=== PATIENT | female | born 1985 | race Caucasian/White ===

== ENCOUNTER → 2017-01-28 | Outpatient (CLI) | payer BC ==
[2017-01-28 10:59] LABS: Basophils % (A) 0 %; CH 30.3; CHCM 33.1; Eosinophils # (A) 0.5 k/uL (0-0.7); Eosinophils % (A) 8 %; HCT 40.4 % (34.0-46.0); HDW 2.54; HGB 13.6 gm/dL (11.4-16.0); Luc # (Auto) 0.22; Luc % (Auto) 4; Lymphocytes # (A) 1.5 k/uL (1.0-4.8); Lymphocytes % (A) 26 %; MCH 30.9 pg (25.0-35.0); MCHC 33.7 g/dL (31.0-37.0); MCV 91.7 fL (80.0-100.0); Mean Platelet Volume 10.2; Monocytes # (A) 0.3 k/uL (0-1.0); Monocytes % (A) 5 %; Neutrophils # (A) 3.3 k/uL (1.3-7.7); Neutrophils % (A) 57 %; RBC 4.41 m/uL (3.80-5.40); RDW 12.7 % (11.5-15.5); WBC 5.9 k/uL (3.8-10.6); WBC (Perox) 6.15
[2017-01-28 11:23] LABS: ALT 40 U/L (9-52); AST 23 U/L (14-36); Alkaline Phosphatase 104 U/L (38-126); Anion Gap 10 mmol/L; Blood Urea Nitrogen 15 mg/dL (7-17); Calcium 9.1 mg/dL (8.4-10.2); Carbon Dioxide 26 mmol/L (22-30); Chloride 104 mmol/L (98-107); Cholesterol 156 mg/dL (<200); Glucose 97 mg/dL (74-99); HDL Cholesterol 44 mg/dL (40-60); Non-African American GFR(MDRD) >60 (>60 ml/min/1.73 sqM); Potassium 4.6 mmol/L (3.5-5.1); Sodium 140 mmol/L (137-145); Total Bilirubin 0.3 mg/dL (0.2-1.3); Total Protein 6.9 g/dL (6.3-8.2)
== END | disposition home or self-care (01) ==
LOC: LABWHC1 10:26
PROVIDERS: ATTEND Family Medicine
DX: Z00.00 Encounter for general adult medical examination without abnormal findings (principal); F41.1 Generalized anxiety disorder; F90.9 Attention-deficit hyperactivity disorder, unspecified type
CPT/HCPCS: 36415; 80053; 80061; 84443; 85025

== ENCOUNTER 2020-09-20 19:30 | Observation (INO) | payer OTHER ==
--- NOTE | 2020-09-20 19:51 | ED ---
General Adult HPI - General Source: patient, EMS Mode of arrival: EMS Limitations: physical limitation <Froy Lind - Last Filed: 09/20/20 21:02> <Dino Calle - Last Filed: 09/20/20 22:05> - General Chief complaint: Extremity Injury, Lower Stated complaint: Right ankle injury Time Seen by Provider: 09/20/20 19:39 - History of Present Illness Initial comments: Patient presents the ED by ambulance for evaluation. Patient states that she was rollerskating a short while prior to arrival to the ED when she accidentally skated onto grass and rolled her right ankle. Patient states that she has been having right ankle pain since then, and she states that her pain is mainly localized along her lateral right ankle. Patient denies any other injury or site of pain. Patient denies head injury, LOC, headache, focal neuro deficit, neck/back/upper extremity pain, hip/knee pain, chest pain, dyspnea, dizziness, abdominal pain, nausea or vomiting, or any other symptoms or complaints. (Froy Lind) - Related Data Home Medications Medication Instructions Recorded Confirmed Loratadine [Claritin] 10 mg PO DAILY 09/20/20 09/20/20 Montelukast [Singulair] 10 mg PO HS 09/20/20 09/20/20 buPROPion HCL [Wellbutrin XL] 300 mg PO DAILY 09/20/20 09/20/20 Allergies Allergy/AdvReac Type Severity Reaction Status Date / Time No Known Allergies Allergy Verified 09/20/20 20:38 Review of Systems ROS Other: All systems not noted in ROS Statement are negative. <Froy Lind - Last Filed: 09/20/20 21:02> ROS Other: All systems not noted in ROS Statement are negative. <Dino Calle - Last Filed: 09/20/20 22:05> ROS Statement: Those systems with pertinent positive or pertinent negative responses have been documented in the HPI. Past Medical History Past Medical History: No Reported History History of Any Multi-Drug Resistant Organisms: None Reported Additional Past Surgical History / Comment(s): lymphnode removed to left axilla Past Psychological History: Anxiety, Depression Smoking Status: Never smoker Past Alcohol Use History: Daily Past Drug Use History: None Reported <Froy Lind - Last Filed: 09/20/20 21:02> General Exam Limitations: physical limitation General appearance: alert, in no apparent distress Head exam: Present: atraumatic, normocephalic Eye exam: Present: normal appearance, EOMI ENT exam: Present: mucous membranes moist Neck exam: Present: other (Trachea is in midline). Absent: tenderness Respiratory exam: Present: normal lung sounds bilaterally. Absent: respiratory distress, wheezes, rales, rhonchi, stridor Cardiovascular Exam: Present: regular rate, normal rhythm, normal heart sounds, other (Normal dorsalis pedis pulses bilaterally) GI/Abdominal exam: Present: soft. Absent: distended, tenderness, guarding Extremities exam: Present: other (Diffuse right ankle swelling and tenderness) Neurological exam: Present: alert, oriented X3. Absent: motor sensory deficit Psychiatric exam: Present: normal affect, normal mood Skin exam: Present: warm, dry, intact, normal color <Froy Lind - Last Filed: 09/20/20 21:02> Course <Froy Lind - Last Filed: 09/20/20 21:02> Vital Signs 09/20/20 19:38 Temperature 98.5 F Pulse Rate 104 H Respiratory 18 Rate Blood Pressure 132/93 O2 Sat by Pulse 97 Oximetry - Reevaluation(s) Reevaluation #1: 09/20/20 20:21 Case, H&P and right ankle x-ray findings were discussed with SHANTEL Cartagena ( orthopedic surgery). She has reviewed the patient's case and films with Dr. Grace. She states that Dr. Grace requests a CT of the patient's right ankle at this time. She recommends calling her back once the CT has been completed. 09/20/20 21:07 Patient was endorsed to Dr. Calle (secondary to shift change) with the patient's right ankle CT still pending. Dr. Calle to follow up on the patient's CT results and orthopedic surgery recommendations. Dr. Calle to take over care of the patient at this time. (Froy Lind) Procedures - Orthopedic Splinting/Casting Injury #1 Side: right Lower Extremity Injury Location: ankle Lower Extremity Immobilizer: posterior splint, stirrup splint <Froy Lind - Last Filed: 09/20/20 21:02> Medical Decision Making - Radiology Data Radiology results: report reviewed (Right ankle x-rays: There is a trimalleolar fracture of the ankle with a partial lateral dislocation of the talus) <Froy Lind - Last Filed: 09/20/20 21:02> <Dino Calle - Last Filed: 09/20/20 22:05> - Medical Decision Making Case discussed with orthopedic service and they will admit patient for planned surgery tomorrow. (Dino Calle) Disposition <Froy Lind - Last Filed: 09/20/20 21:02> Is patient prescribed a controlled substance at d/c from ED?: No <Dino Calle - Last Filed: 09/20/20 22:05> Clinical Impression: Trimalleolar fracture of right ankle Disposition: ADMITTED IP TO THIS HOSP Condition: Fair Referrals: Nawaf Dowling MD [Primary Care Provider] - 1-2 days
[2020-09-20] MEDS ORDERED: HYDROmorphone 1 MG/ML 1 ML SYRINGE IVP STA (19:58)
--- NOTE | 2020-09-20 20:11 | XR ---
EXAMINATION TYPE: XR ankle limited RT DATE OF EXAM: 09/20/2020 COMPARISON: NONE HISTORY: Fall. Pain. TECHNIQUE: 2 views FINDINGS: There is oblique fracture of the distal shaft of the fibula. There is slight overriding. Th ere is transverse fracture of the medial malleolus. There is large chip fracture on the posterior lat eral aspect of the posterior malleolus. There is lateral subluxation of the talus approximately 15 mm . The talus is intact. Calcaneus is intact. IMPRESSION: There is trimalleolar fracture of the ankle with a partial lateral dislocation of the arnol us.
[2020-09-20] MEDS ORDERED: ONDANSETRON 4 MG/2 ML VIAL IVP STA (21:00)
[2020-09-20] MEDS ORDERED: ONDANSETRON 4 MG/2 ML VIAL IVP PRN (22:02)
[2020-09-20] MEDS ORDERED: HYDROmorphone 2 MG TAB PO PRN (22:02)
[2020-09-20] MEDS ORDERED: NALOXONE 0.4 MG/ML 1 ML VIAL IV PRN (22:02)
[2020-09-20] MEDS ORDERED: SODIUM CHLORIDE 0.9% 1,000 ML IV ONE (22:05)
--- NOTE | 2020-09-20 22:05 | CT ---
CT scan of the right ankle. History fracture. Pain. Comparison none. TECHNIQUE: Images obtained from the mid tibia to the bottom of the calcaneus with no contrast. There is nondisplaced 2 x 0.8 cm posterior malleolus chip fracture. There is oblique fracture distal shaft of the fibula with 4 mm lateral displacement of the distal fragment. There is transverse fractu re through the medial malleolus. Fragment is displaced 3 mm laterally. The talus is displaced [address] There is some widening of the distal tibia fibula joint. This is consistent with ligamentous tear. The talus is intact. The calcaneus is intact. Tarsal bones are intact. IMPRESSION: There is trimalleolar type fracture of the ankle. There is approximate 3 mm of lateral displacement o f the talus.
[2020-09-20] MEDS ORDERED: METOCLOPRAMIDE 5 MG/ML 2 ML VIAL IVP STA (22:10)
[2020-09-20] MEDS: SODIUM CHLORIDE 0.9% 1,000 ML IV SCH (22:16)
[2020-09-21] MEDS ORDERED: HYDROmorphone 1 MG/ML 1 ML SYRINGE IVP PRN ×2 (00:36→10:27)
[2020-09-21] MEDS: HYDROmorphone 0.5 MG/0.5 ML SYRINGE IVP PRN ×3 (01:28→13:57)
[2020-09-21] MEDS: SODIUM CHLORIDE 0.9% 1,000 ML IV SCH (08:06)
[2020-09-21] MEDS ORDERED: METOCLOPRAMIDE 5 MG/ML 2 ML VIAL IVP STA (08:42)
--- NOTE | 2020-09-21 08:42 | P.HPOR ---
History of Present Illness H&P Date: 09/21/20 This is a 35-year-old female who is admitted for right ankle fracture. Patient states that she was rollerblading on 09/20/2020 and she rolled the right ankle. Patient was evaluated in the emergency room where x-rays revealed trimalleolar fracture of the right ankle. Patient was then admitted for further management. Patient is seen and evaluated at bedside today. Patient states that her pain is well controlled, but she is feeling nauseated. Patient denies any fever/chills, numbness, weakness or tingling. Review of Systems See HPI. Past Medical History Past Medical History: No Reported History, GERD/Reflux History of Any Multi-Drug Resistant Organisms: None Reported Additional Past Surgical History / Comment(s): lymphnode removed to left axilla Past Psychological History: Anxiety, Depression Smoking Status: Never smoker Past Alcohol Use History: Daily Additional Past Alcohol Use History / Comment(s): 1 drink a day, vodka Past Drug Use History: None Reported Medications and Allergies Home Medications Medication Instructions Recorded Confirmed Type Loratadine [Claritin] 10 mg PO DAILY 09/20/20 09/20/20 History Montelukast [Singulair] 10 mg PO HS 09/20/20 09/20/20 History buPROPion HCL [Wellbutrin XL] 300 mg PO DAILY 09/20/20 09/20/20 History Allergies Allergy/AdvReac Type Severity Reaction Status Date / Time No Known Allergies Allergy Verified 09/21/20 01:03 Physical Examination On exam patient is resting comfortably in bed in no acute distress. Patient is alert and oriented 3. Splint is clean, dry and intact to the right lower extremity. Patient is able to wiggle the toes of the right foot. The right lower extremity is warm and well perfused. Capillary refill is normal at less than 2 seconds. Sensation is intact. Neurovascular status and circulatory status are intact. Head is normocephalic and atraumatic. Exams of the left lower extremity and bilateral upper extremities are within normal limits. Results X-rays and CT scan of the right ankle dated 09/20/2020 reveal trimalleolar fracture of the right ankle. Assessment and Plan (1) Trimalleolar fracture of right ankle Current Visit: Yes Status: Acute Code(s): S82.851A - DISPLACED TRIMALLEOLAR FRACTURE OF RIGHT LOWER LEG, INIT SNOMED Code(s): 296908013 Plan: 1. Patient is to be NPO. 2. Nonweightbearing to the right lower extremity. Maintain splint. 3. Planning for ORIF of the right ankle later today by Dr. Miguel Grace. All patient's questions and concerns are answered at bedside today. Planning for discharge home postoperatively.
[2020-09-21] MEDS ORDERED: PANTOPRAZOLE 40 MG/10 ML VIAL IV SCH (09:00)
[2020-09-21] MEDS ORDERED: hydrOXYzine pamoate 25 MG CAP PO PRN (10:27)
[2020-09-21] MEDS ORDERED: HYDROmorphone 0.2 MG/1 ML SYRINGE IVP PRN (10:27)
[2020-09-21] MEDS ORDERED: HYDROmorphone 0.5 MG/0.5 ML SYRINGE IVP PRN (10:27)
[2020-09-21] MEDS ORDERED: SENNOSIDES-DOCUSATE SODIUM 1 EACH TAB PO PRN (10:27)
[2020-09-21] MEDS ORDERED: HYDROcodone/APAP 7.5-325MG 1 EACH TAB PO PRN ×2 (10:28)
[2020-09-21] MEDS ORDERED: ROPIVACAINE 5 MG/ML 30 ML VIAL ONE (10:30)
[2020-09-21] MEDS ORDERED: SODIUM CHLORIDE 0.9% 100 ML BAG ONE (10:30)
[2020-09-21] MEDS ORDERED: MIDAZOLAM 2 MG/2 ML VIAL ONE (10:30)
[2020-09-21] MEDS ORDERED: PROPOFOL 10 MG/ML 20 ML VIAL IV ONE (10:30)
[2020-09-21] MEDS ORDERED: SUCCINYLCHOLINE CHLORIDE 100 MG/5 ML SYR IV ONE (10:30)
[2020-09-21] MEDS ORDERED: fentaNYL (PF) 50 MCG/ML 2 ML AMP ONE (10:30)
[2020-09-21] MEDS ORDERED: ceFAZolin 1,000 MG VIAL ONE (10:30)
[2020-09-21] MEDS ORDERED: LIDOCAINE 1% INJ 10MG/ML (20 ML MDV) ONE (10:30)
[2020-09-21] MEDS ORDERED: IV FLUID CONTINUATION 600 ML IV ONE (10:35)
[2020-09-21] MEDS ORDERED: BUPIVACAINE (PF) 0.5% 30 ML VIAL SQ ONE ×3 (10:57→11:54)
[2020-09-21] MEDS ORDERED: LACTATED RINGERS 1,000 ML IV ONE (11:30)
--- NOTE | 2020-09-21 11:43 | P.OP ---
Date of Procedure: 09/21/20 Preoperative Diagnosis: Trimalleolar fracture dislocation right ankle Postoperative Diagnosis: Trimalleolar fracture dislocation right ankle Procedure(s) Performed: Open reduction and internal fixation of the right distal fibula and medial malleolus Implants: Heller and nephew small fragment set Anesthesia: GETA Surgeon: Miguel Grace Curator Of Education #1: Mirian Cartagena Estimated Blood Loss (ml): 10 Pathology: none sent Condition: stable Disposition: PACU Indications for Procedure: This is a 35-year-old woman that sustained a trimalleolar fracture dislocation of her right ankle while rollerblading. She presented emergency room and was splinted and admitted for operative fixation of her right ankle. After discussing the surgical nonsurgical treatment options with her at length I've recommended open reduction internal fixation of her right ankle and informed consent was obtained. Operative Findings: The operative findings are consistent with a trimalleolar fracture dislocation of the right ankle. The posterior malleolar fragment was evaluated preoperatively of the CAT scan and also intraoperatively and deemed not necessary for internal fixation. The distal fibula and medial malleolus were fixated surgically. Description of Procedure: The patient was seen and evaluated in the preoperative area. The consent was reviewed and the operative site was marked with a skin marker. Patient was then brought to the operating room and given 2 g of Ancef by the anesthesia department. A general anesthetic was then administered by the anesthesia department. Tourniquet was placed on the upper thigh and the lower extremity was then prepped and draped in the usual sterile fashion. A universal timeout was then performed which confirmed the patient's name, surgi reza site, ALLERGIES, and consent. The lower extremity was then exsanguinated, and the tourniquet inflated to 250 mmHg. A standard lateral incision was then performed over the distal fibula with the skin and subcutaneous tissue sharply incised with the incision centered over the fracture site. Tissues were carefully dissected down to the fracture site. The fracture hematoma was evacuated and the fracture was then reduced with bone reducing clamps. Fluoroscopic x-rays confirmed reduction of the fracture and christian of the ankle mortise. Next, an anterior to posterior lag screw was then placed by over drilling the proximal hole. After the anterior to posterior lag screw was placed, the bone clamp was able to be removed and the fracture was held stable. Next, a distal fibular plate was placed on the lateral aspect of the distal fibula. Screws were then were placed both proximally and distally in order to fixate the plate to the distal fibula. After all the screws then placed, final fluoroscopic x-rays confirmed reduction of the fracture. Attention was then directed to the medial malleolus. A curvilinear incision was made over the medial malleolar fracture with care being taken to protect the neurovascular structures. Periosteum was removed from the fracture site and the fracture was then reduced with a towel clip. 2 K wires were then placed through the distal fibula to hold the fracture in place. Fluoroscopic x-rays confirmed reduction of the fracture, placement of the K wires, and christian of the ankle mortise. A cannulated drill was placed over the K wires and 2 4.0mm, 40 mm cannulated screws were then placed through the medial malleolus. The guidewires were then removed. Final fluoroscopic x-rays confirm reduction of the fracture including the posterior malleolar fragment, and placement of the hardware. The tourniquet was then released and hemostasis was obtained. The incision site was then irrigated with antibiotic solution. Wound was then closed with 2-0 Vicryl for the subcutaneous tissue and nahed for the skin. 20 cc of quarter percent plain Marcaine were then injected about the surgical site. Sterile dressings were applied, and a well-padded and molded posterior splint was placed. Patient was then transported to the recovery room in stable condition. The surgical physician assistant SHANTEL Castellon was required due to the complexity of the surgery and the need for a skilled salon shampoo assistant.
[2020-09-21] MEDS ORDERED: ceFAZolin 1,000 MG in SODIUM CHLORIDE 0.9% 1,000 ML IRRIGATION ONE (11:47)
--- NOTE | 2020-09-21 12:02 | XR ---
EXAMINATION TYPE: XR ankle limited RT DATE OF EXAM: 09/21/2020 COMPARISON: NONE TECHNIQUE: Two views submitted HISTORY: Post op FINDINGS: There is postoperative change in near anatomic alignment. There is soft tissue edema and emphysema. IMPRESSION: 1. Postoperative change. Appears in near-anatomic alignment
--- NOTE | 2020-09-21 12:17 | P.DS ---
Providers Date of admission: 09/20/20 22:02 Expected date of discharge: 09/21/20 Attending physician: Miguel Grace Primary care physician: Nawaf Dowling - Discharge Diagnosis(es) (1) Trimalleolar fracture of right ankle Current Visit: Yes Status: Acute Hospital Course: This is a 35-year-old female who is admitted for management of a trimalleolar fracture dislocation of the right ankle which occurred after the patient fell on 09/20/2020. Patient presented to the emergency room for evaluation where x-rays revealed trimalleolar fracture dislocation of the right ankle. After discussion and consideration patient elects to proceed with open reduction and internal fixation of the right ankle. Patient is admitted on 09/20/2020 and ORIF of the right ankle is performed on 09/21/[address] Miguel Grace. Procedure is performed without complication or sequelae. Labs and vital signs are stable on the day discharge. On exam splint is clean and dry the right lower extremity. The right lower extremity is warm and well-perfused. Capillary refill is normal at less than 2 seconds. Sensation intact. Neurovascular status and circulatory status are intact. Patient is in good condition for discharge home today. Patient Condition at Discharge: Fair Plan - Discharge Summary Discharge Rx Participant: Yes New Discharge Prescriptions: New HYDROcodone/APAP 7.5-325MG [[place] 7.5-325] 1 - 2 tab PO Q6H PRN #32 tab PRN Reason: Pain Aspirin 325 mg PO BID #60 tab Sennosides [Senokot] 2 tab PO DAILY PRN #60 tablet PRN Reason: Constipation No Action buPROPion HCL [Wellbutrin XL] 300 mg PO DAILY Montelukast [Singulair] 10 mg PO HS Loratadine [Claritin] 10 mg PO DAILY Discharge Medication List Loratadine [Claritin] 10 mg PO DAILY 09/20/20 [History] Montelukast [Singulair] 10 mg PO HS 09/20/20 [History] buPROPion HCL [Wellbutrin XL] 300 mg PO DAILY 09/20/20 [History] Aspirin 325 mg PO BID #60 tab 09/21/20 [Rx] HYDROcodone/APAP 7.5-325MG [[place] 7.5-325] 1 - 2 tab PO Q6H PRN #32 tab 09/21/20 [Rx] Sennosides [Senokot] 2 tab PO DAILY PRN #60 tablet 09/21/20 [Rx] Follow up Appointment(s)/Referral(s): Nawaf Dowling MD [Primary Care Provider] - 1-2 days Miguel Grace DO [Doctor of Osteopathic Medicine] - 1 Week Ambulatory/Diagnostic Orders: Ambulatory Miscellaneous Order [MISC.AMB] Time Frame: 2 Months, Location: None Selected Activity/Diet/Wound Care/Special Instructions: Strictly nonweightbearing to the right lower extremity. Keep splint clean, dry and intact. Do not get the splint wet. Rest and elevate for swelling. Please take aspirin twice daily to help prevent blood clots. Please take medications as prescribed. Please follow-up with [facility] and call with any questions or concerns, . Discharge Disposition: HOME SELF-CARE
[2020-09-21 12:34] VITALS: RESP 16
[2020-09-21] MEDS ORDERED: ONDANSETRON 4 MG/2 ML VIAL IVP PRN (14:16)
[2020-09-21 17:15] VITALS: BP 113/77; PULSE 87; TEMP 98
--- NOTE | 2020-09-21 18:49 | P.ANPRN ---
Procedure Note - Anesthesia - Nerve Block Performed Right Popliteal Single Time Out Performed: Yes Date of Procedure: 08/22/20 Procedure Start Time: 10:20 Procedure Stop Time: :25 Location of Patient: PreOp Indication: Acute Post-Operative Pain, Requested by Surgeon Sedation Type: Sedate with meaningful contact maintained Preparation: Sterile Prep Position: Left Lateral Needle Types: Pajunk Needle Gauge: 21 Ultrasound used to visualize needle placement: Yes Ultrasound used to observe medication spread: Yes Blood Aspirated: No Pain Paresthesia on Injection Noted: No Resistance on Injection: Normal Image Stored and Saved: Yes Events: Uneventful and Well Tolerated (Ropivacaine 0.5% 30 mL was given)
[2020-09-22] MEDS ORDERED: PANTOPRAZOLE 40 MG TABLET PO SCH (07:30)
--- NOTE | 2020-09-22 08:20 | FL ---
Fluoroscopy HISTORY: Open reduction internal fixation 56 seconds fluoroscopy time supplied to the referring clinician. 2 intraoperative C-arm images docum ent the procedure. See dictated report from orthopedic surgery.
== END 2020-09-21 18:33 | disposition home or self-care (01) ==
LOC: EC 19:30 → 6PED 22:02
PROVIDERS: ADMIT Orthopaedic Surgery; ATTEND Orthopaedic Surgery
DX: S82.851A Displaced trimalleolar fracture of right lower leg, initial encounter for closed fracture (principal); F32.9 Major depressive disorder, single episode, unspecified; F41.9 Anxiety disorder, unspecified; K21.9 Gastro-esophageal reflux disease without esophagitis; Z20.822 Contact with and (suspected) exposure to COVID-19; Z79.899 Other long term (current) drug therapy; Z98.890 Other specified postprocedural states; V00.111A Fall from in-line roller-skates, initial encounter; Y93.51 Activity, roller skating (inline) and skateboarding
CPT/HCPCS: 96376; 96374; 96375; 99285; 64445; 76942; 81025; 87635; 73600 ×2; 73700; 27823; G0378 ×2; C1713; J2250; J2765 ×2; J0690 ×2; J2405 ×2; J2001; J3010; J1170 ×2; J2795; J0330; J2704; C9113

== ENCOUNTER 2021-01-17 23:17 | Emergency (ER) | payer OTHER ==
[2021-01-17 23:22] VITALS: TEMP 98.6
[2021-01-17] MEDS ORDERED: ALBUTEROL HFA INHALER INHALATION STA (23:30)
[2021-01-17] MEDS ORDERED: DEXAMETHASONE SOD PHOSPHATE 10 MG/ML 1 ML VIAL IM STA (23:30)
--- NOTE | 2021-01-17 23:42 | ED ---
General Adult HPI - General Chief complaint: Fever Stated complaint: ANGELO Time Seen by Provider: 01/17/21 23:24 Source: patient Mode of arrival: wheelchair Limitations: no limitations - History of Present Illness Initial comments: 35 year-old female patient presents to the emergency department for evaluation of cough, congestion, and shortness of breath. States she started having symptoms about a week ago. States she thought she was getting better but then today started having increased shortness of breath. States she did take mucinex and tylenol cold and flu. She states she did have fevers but they have resolved. Her tested positive for COVID. Patient denies any recent rash, chest pain, abdominal pain, nausea, vomiting, diarrhea, constipation, back pain, numbness, tingling, dizziness, weakness, hematuria, dysuria, urinary urgency, urinary frequency, headache, visual changes, or any other complaints. - Related Data Home Medications Medication Instructions Recorded Confirmed Loratadine [Claritin] 10 mg PO DAILY 09/20/20 09/20/20 Montelukast [Singulair] 10 mg PO HS 09/20/20 09/20/20 buPROPion HCL [Wellbutrin XL] 300 mg PO DAILY 09/20/20 09/20/20 Previous Rx's Medication Instructions Recorded Aspirin 325 mg PO BID #60 tab 09/21/20 HYDROcodone/APAP 7.5-325MG [[place] 1 - 2 tab PO Q6H PRN #32 tab 09/21/20 7.5-325] Sennosides [Senokot] 2 tab PO DAILY PRN #60 tablet 09/21/20 Albuterol Sulfate [Proair Hfa] 1 - 2 puff INHALATION Q6HR PRN 01/18/21 #8.5 gm Dexamethasone 6 mg PO DAILY #9 tablet 01/18/21 Allergies Allergy/AdvReac Type Severity Reaction Status Date / Time No Known Allergies Allergy Verified 01/17/21 23:22 Review of Systems ROS Statement: Those systems with pertinent positive or pertinent negative responses have been documented in the HPI. ROS Other: All systems not noted in ROS Statement are negative. Past Medical History Past Medical History: GERD/Reflux History of Any Multi-Drug Resistant Organisms: None Reported Past Surgical History: Orthopedic Surgery Additional Past Surgical History / Comment(s): lymphnode removed to left axilla, rt ankle Past Psychological History: Anxiety, Depression Smoking Status: Never smoker Past Alcohol Use History: Daily Past Drug Use History: None Reported General Exam Limitations: no limitations General appearance: alert, in no apparent distress, other (This is a well- developed, well-nourished adult female patient in no acute distress. Vital signs upon presentation are temperature 98.6F, pulse 118, respirations 22, blood pressure 150/102, pulse ox 98% on room air.) Respiratory exam: Present: normal lung sounds bilaterally. Absent: respiratory distress, wheezes, rales, rhonchi, stridor Cardiovascular Exam: Present: normal rhythm, tachycardia, normal heart sounds. Absent: systolic murmur, diastolic murmur, rubs, gallop, clicks GI/Abdominal exam: Present: soft, normal bowel sounds. Absent: distended, tenderness, guarding, rebound, rigid Neurological exam: Present: alert, oriented X3, CN II-XII intact Psychiatric exam: Present: normal affect, normal mood Skin exam: Present: warm, dry, intact, normal color. Absent: rash Course Vital Signs 01/17/21 01/18/21 01/18/21 23:19 01:00 01:16 Temperature 98.6 F Pulse Rate 118 H 96 Respiratory 22 18 16 Rate Blood Pressure 150/102 143/101 O2 Sat by Pulse 98 97 Oximetry Medical Decision Making - Medical Decision Making 35 year-old female presented for evaluation of upper respiratory symptoms and shortness of breath. She had been exposed to COVID. V/S were unremarkable, no fever, normal O2 saturation. Lungs were clear to auscultation. Xray of the chest was negative. She did test positive for COVID-19. I did discuss monoclonal antibody infusion including risks and benefits and goal of therapy. She declined the infusion. She was informed that she could receive this up until day 10 of symptoms. She'll be discharged home with prescription for dexamethasone and a Pro Air inhaler. She is instructed to follow-up with the primary care physician for recheck in 1-2 days. Return parameters were discussed in detail. She verbalizes understanding and agrees with this plan. My attending is Dr. Quiroz. - Lab Data Lab Results 01/18/21 Range/Units 00:13 Coronavirus (PCR) Detected A (Not Detectd) Disposition Clinical Impression: COVID-19 Disposition: HOME SELF-CARE Condition: Good Instructions (If sedation given, give patient instructions): Coronavirus Disease 2019 (COVID-19) Additional Instructions: Rest. Increase fluids. Complete full dosing of steroids. Use other medications as directed. Follow-up with the primary care physician for recheck in 1-2 days. Return for any new, worsening, or concerning symptoms. Prescriptions: Dexamethasone 6 mg PO DAILY #9 tablet Albuterol Sulfate [Proair Hfa] 1 - 2 puff INHALATION Q6HR PRN #8.5 gm PRN Reason: Shortness Of Breath Is patient prescribed a controlled substance at d/c from ED?: No Referrals: Nawaf Dowling MD [Primary Care Provider] - 1-2 days Time of Disposition: 00:49
--- NOTE | 2021-01-18 00:09 | XR ---
EXAMINATION TYPE: XR chest 1V DATE OF EXAM: 01/18/2021 COMPARISON: NONE HISTORY: Cough TECHNIQUE: Single view FINDINGS: Heart and mediastinum are normal. Lungs are clear. Diaphragm is normal. Bony thorax is inta ct. IMPRESSION: Normal chest.
[2021-01-18 01:17] VITALS: BP 143/101; PULSE 96; RESP 16
== END 2021-01-18 01:17 | disposition home or self-care (01) ==
LOC: EC 23:17
DX: U07.1 COVID-19 (principal); K21.9 Gastro-esophageal reflux disease without esophagitis; F41.9 Anxiety disorder, unspecified; F32.9 Major depressive disorder, single episode, unspecified; Z79.52 Long term (current) use of systemic steroids; Z79.82 Long term (current) use of aspirin; Z79.899 Other long term (current) drug therapy
CPT/HCPCS: 94640; 87635; 71045; 99285; 96372; J1100

== ENCOUNTER → 2023-01-26 | Outpatient (CLI) | payer OTHER ==
--- NOTE | 2023-01-26 15:40 | US ---
EXAMINATION TYPE: US pelvis complete transvag DATE OF EXAM: 01/26/2023 COMPARISON: NONE CLINICAL INDICATION: Female, 37 years old with history of N94.6 DYSMENORRHEA, UNSPECIFIED; Right pelv ic pain, Heavy menses TECHNIQUE: Transvaginal (TV) and Transabdominal (TA) . Transabdominal sonographic images of the pel vis were acquired. Transvaginal sonographic images were medically necessary to better assess the fol lowing anatomy: ovaries Date of LMP: 01/17/23 EXAM MEASUREMENTS: Uterus: 10.6 x 5.0 x 6.4 cm Endometrial Stripe: 0.6 cm Right Ovary: 3.3 x 3.3 x 2.0 cm Left Ovary: 5.7 x 4.8 x 3.1 cm 1. Uterus: Anteverted Nabothian cysts. Fundal lesion (fibroid) = 2.7 x 2.8 x 2.9cm 2. Endometrium: appears wnl 3. Right Ovary: follicles noted 4. Left Ovary: multiple cystic lesions, largest = 2.7cm. Some of these are complex with internal ech oes. 5. Bilateral Adnexa: appears wnl 6. Posterior cul-de-sac: wnl IMPRESSION: Bilateral ovarian cysts and follicles. The larger on the left some of which contain inter nal debris. Follow-up 6 weeks following the next normal menstrual period is recommended. 2. Uterine fibroid right fundus.
== END | disposition home or self-care (01) ==
LOC: RADUSWWP 14:04
PROVIDERS: ATTEND Obstetrics & Gynecology
DX: N83.201 Unspecified ovarian cyst, right side (principal); N83.202 Unspecified ovarian cyst, left side; D25.9 Leiomyoma of uterus, unspecified; N94.6 Dysmenorrhea, unspecified
CPT/HCPCS: 76830; 76856

== ENCOUNTER 2023-05-06 13:49 | Emergency (ER) | payer OTHER ==
[2023-05-06 14:24] VITALS: BP 155/93; RESP 18; TEMP 98.2
--- NOTE | 2023-05-06 14:24 | ED ---
General Adult HPI - General Source: patient Mode of arrival: ambulatory Limitations: no limitations <Dagoberto Roberson - Last Filed: 05/06/23 14:25> <Mary Islas - Last Filed: 05/07/23 02:19> - General Chief complaint: Arrhythmia/Palpitations Stated complaint: Chest Pain,left side pain Time Seen by Provider: 05/06/23 15:00 - History of Present Illness Initial comments: 37-year-old female presenting to the ED with a chief complaint dictations. Patient states for the past week has had a dull sensation to the left side of her body. States that this has been worsening in nature. States over the past 3 days has felt palpitations noting that sometimes it feels like it is beating too fast or skips a beat. Today, her smart watch notified her that she was in A. fib prompting presentation to the ED for further evaluation. Denies history of A. fib. Patient also does note some swelling of her left leg and pain behind the left knee. Denies shortness of breath. (Dagoberto Roberson) 37-year-old female presents emergency department for palpitations. States that the symptoms have been going on for the past few months but worsened over the past week. She has been wearing her apple watch which has been telling her that she is A. fib. She denies history of such. No previous cardiac history. She denies any chest pain. No nausea or vomiting. No concern for . Denies any abdominal pain. No family history of sudden cardiac . She denies any previous cardiac workup. She does admit to some left calf pain. No history of DVT or PE. No other alleviating, precipitating or modifying factors (Mary Islas) - Related Data Home Medications Medication Instructions Recorded Confirmed Loratadine [Claritin] 10 mg PO DAILY 09/20/20 09/20/20 Montelukast [Singulair] 10 mg PO HS 09/20/20 09/20/20 buPROPion HCL [Wellbutrin XL] 300 mg PO DAILY 09/20/20 09/20/20 Previous Rx's Medication Instructions Recorded Aspirin 325 mg PO BID #60 tab 09/21/20 HYDROcodone/APAP 7.5-325MG [Hurley 1 - 2 tab PO Q6H PRN #32 tab 09/21/20 7.5-325] Sennosides [Senokot] 2 tab PO DAILY PRN #60 tablet 09/21/20 Albuterol Sulfate [Proair Hfa] 1 - 2 puff INHALATION Q6HR PRN 01/18/21 #8.5 gm dexAMETHasone [Dexamethasone] 6 mg PO DAILY #9 tablet 01/18/21 Allergies Allergy/AdvReac Type Severity Reaction Status Date / Time No Known Allergies Allergy Verified 05/06/23 14:22 Review of Systems ROS Other: All systems not noted in ROS Statement are negative. <Dagoberto Roberson - Last Filed: 05/06/23 14:25> ROS Other: All systems not noted in ROS Statement are negative. <Mary Islas - Last Filed: 05/07/23 02:19> ROS Statement: Those systems with pertinent positive or pertinent negative responses have been documented in the HPI. Past Medical History Past Medical History: GERD/Reflux History of Any Multi-Drug Resistant Organisms: None Reported Past Surgical History: Orthopedic Surgery Additional Past Surgical History / Comment(s): lymphnode removed to left axilla, rt ankle Past Psychological History: Anxiety, Depression Smoking Status: Never smoker Past Alcohol Use History: Daily Past Drug Use History: Marijuana <DaDagoberto - Last Filed: 05/06/23 14:25> General Exam Limitations: no limitations General appearance: alert <DaDagoberto - Last Filed: 05/06/23 14:25> General appearance: alert, in no apparent distress Head exam: Present: atraumatic, normocephalic, normal inspection Eye exam: Present: normal appearance, PERRL, EOMI. Absent: scleral icterus, conjunctival injection, periorbital swelling ENT exam: Present: normal exam, mucous membranes moist Neck exam: Present: normal inspection. Absent: tenderness, meningismus, lymphadenopathy Respiratory exam: Present: normal lung sounds bilaterally. Absent: respiratory distress, wheezes, rales, rhonchi, stridor Cardiovascular Exam: Present: regular rate, normal rhythm, normal heart sounds. Absent: systolic murmur, diastolic murmur, rubs, gallop, clicks GI/Abdominal exam: Present: soft, normal bowel sounds. Absent: distended, tenderness, guarding, rebound, rigid Extremities exam: Present: normal inspection, full ROM, normal capillary refill. Absent: tenderness, pedal edema, joint swelling, calf tenderness Back exam: Present: normal inspection Neurological exam: Present: alert, oriented X3, CN II-XII intact Psychiatric exam: Present: normal affect, normal mood Skin exam: Present: warm, dry, intact, normal color. Absent: rash <Mary Islas - Last Filed: 05/07/23 02:19> - General Exam Comments Initial Comments: Visual Physical Exam Vital signs reviewed General: Well-appearing, nontoxic, no acute distress. Head: Normocephalic, atraumatic Eyes: PERRLA, EOMI ENT: Airway patent Chest: Nonlabored breathing Skin: No visual rash, normal skin tone Neuro: Alert and oriented 3 Musculoskeletal: No gross abnormalities (Dagoberto Roberson) Course Vital Signs 05/06/23 05/06/23 05/06/23 14:17 16:14 16:20 Temperature 98.2 F Pulse Rate 109 H 94 86 Respiratory 18 18 Rate Blood Pressure 155/93 O2 Sat by Pulse 96 97 Oximetry 05/06/23 05/06/23 05/06/23 16:30 16:40 16:50 Temperature Pulse Rate 95 86 85 Respiratory 16 Rate Blood Pressure O2 Sat by Pulse 96 97 98 Oximetry 05/06/23 05/06/23 05/06/23 17:00 17:10 17:20 Temperature Pulse Rate 82 85 82 Respiratory Rate Blood Pressure O2 Sat by Pulse 96 95 96 Oximetry 05/06/23 17:30 Temperature Pulse Rate 84 Respiratory 18 Rate Blood Pressure O2 Sat by Pulse 96 Oximetry Medical Decision Making <Dagoberto Roberson - Last Filed: 05/06/23 14:25> - Lab Data Result diagrams: 05/06/23 14:42 05/06/23 14:42 <Mary Islas - Last Filed: 05/07/23 02:19> - Medical Decision Making Quicknote portion performed. Signed Dagoberto Roberson PA-C (Dagoberto Roberson) Was pt. sent in by a medical professional or institution ([facility], [facility], urgent care, hospital, or fpc...) When possible be specific @ -No Did you speak to anyone other than the patient for history (EMS, parent, family, police, friend...)? What history was obtained from this source @ -No Did you review nursing and triage notes (agree or disagree)? Why? @ -I reviewed and agree with nursing and triage notes Were old charts reviewed (outside hosp., previous admission, EMS record, old EKG, old radiological studies, urgent care reports/EKG's, fpc records)? Report findings @ -No old charts were reviewed Differential Diagnosis (chest pain, altered mental status, abdominal pain women, abdominal pain men, vaginal bleeding, weakness, fever, dyspnea, syncope, headache, dizziness, GI bleed, back pain, seizure, CVA, palpatations, mental health, musculoskeletal)? @ -Differential Palpitations Ventricular arrhythmias, atrial arrhythmias, myocardial infarction, anemia, thyrotoxicosis, electrolyte imbalance, hypokalemia, pulmonary embolism, pulmonary disease, drugs, alcohol, anxiety, stress.... This is not meant to be an all-inclusive list. EKG interpreted by me (3pts min.). @ -yes and demonstrates sinus rhythm with a rate of 95. GA interval 187. QRS 86. QTC of 401. No acute ST segment elevations or depressions X-rays interpreted by me (1pt min.). @ -Yes and demonstrates no acute process CT interpreted by me (1pt min.). @ -None done U/S interpreted by me (1pt. min.). @ -None done What testing was considered but not performed or refused? (CT, X-rays, U/S, labs)? Why? @ -None What meds were considered but not given or refused? Why? @ -None Did you discuss the management of the patient with other professionals (professionals i.e. , PA, W[facility]OWS ADMIN, lab, RT, psych nurse, social sciences instructor, police booking officer, teacher, bomb squad officer, bottle caser)? Give summary @ -No Was smoking cessation discussed for >3mins.? @ -No Was critical care preformed (if so, how long)? @ -No Were there social determinants of health that impacted care today? How? (Homelessness, low income, unemployed, alcoholism, drug addiction, transportation, low edu. Level, literacy, decrease access to med. care, [facility], rehab)? @ -No Was there de-escalation of care discussed even if they declined (Discuss DNR or withdrawal of care, Hospice)? DNR status @ -No What co-morbidities impacted this encounter? (DM, HTN, Smoking, COPD, CAD, Cancer, CVA, ARF, Chemo, Hep., AIDS, mental health diagnosis, sleep apnea, morbid obesity)? @ -None Was patient admitted / discharged? Hospital course, mention meds given and route, prescriptions, significant lab abnormalities, going to OR and other pertinent info. @ -Discharged. Upon arrival patient was placed into room 26. Thorough history and physical exam was performed. She is placed on continuous pulse ox and cardiac monitoring. 12-lead EKG was obtained. Laboratory studies were conduct ed. Chest x-ray was performed as well as an ultrasound of the lower extremity. Results of the testing are discussed patient. Patient discharged home at this time. Instructed to follow-up with her primary care doctor. Recommend Holter monitoring and an echo. Return for any new or worsening symptoms. Patient agreeable to plan and was discharged in stable condition Undiagnosed new problem with uncertain prognosis? @ yes Drug Therapy requiring intensive monitoring for toxicity (Heparin, Nitro, Insulin, Cardizem)? @ -No Were any procedures done? @ -No Diagnosis/symptom? @ -Acute palpitations Acute, or Chronic, or Acute on Chronic? @ -acute Uncomplicated (without systemic symptoms) or Complicated (systemic symptoms)? @ -complicated Side effects of treatment? @ -No Exacerbation, Progression, or Severe Exacerbation? @ -No Poses a threat to life or bodily function? How? (Chest pain, USA, NC, pneumonia, PE, COPD, DKA, ARF, appy, cholecystitis, CVA, Diverticulitis, Homicidal, Suicidal, threat to staff... and all critical care pts) @ -No (Mary Islas) - Lab Data Lab Results 05/06/23 05/06/23 05/06/23 Range/Units 14:42 14:42 14:42 WBC 6.8 (3.8-10.6) k/uL RBC 4.23 (3.80-5.40) m/uL Hgb 13.4 (11.4-16.0) gm/dL Hct 38.6 (34.0-46.0) % MCV 91.1 (80.0-100.0) fL MCH 31.6 (25.0-35.0) pg MCHC 34.6 (31.0-37.0) g/dL RDW 12.5 (11.5-15.5) % Plt Count 163 (150-450) k/uL MPV 10.4 Neutrophils % 69 % Lymphocytes % 17 % Monocytes % 4 % Eosinophils % 7 % Basophils % 1 % Neutrophils # 4.7 (1.3-7.7) k/uL Lymphocytes # 1.2 (1.0-4.8) k/uL Monocytes # 0.3 (0-1.0) k/uL Eosinophils # 0.4 (0-0.7) k/uL Basophils # 0.0 (0-0.2) k/uL PT 10.4 (10.0-12.5) sec INR 0.9 (<1.2) APTT 24.6 (22.0-30.0) sec Sodium 136 L (137-145) mmol/L Potassium 4.1 (3.5-5.1) mmol/L Chloride 101 (98-107) mmol/L Carbon Dioxide 26 (22-30) mmol/L Anion Gap 9 mmol/L BUN 15 (7-17) mg/dL Creatinine 0.61 (0.52-1.04) mg/dL Est GFR (CKD-EPI)AfAm >90 (>60 ml/min/1.73 sqM) Est GFR (CKD-EPI)NonAf >90 (>60 ml/min/1.73 sqM) Glucose 96 (74-99) mg/dL Calcium 9.5 (8.4-10.2) mg/dL Magnesium 1.8 (1.6-2.3) mg/dL Total Bilirubin 0.7 (0.2-1.3) mg/dL AST 89 H (14-36) U/L ALT 75 H (4-34) U/L Alkaline Phosphatase 84 (38-126) U/L Troponin I (0.000-0.034) ng/mL Total Protein 6.9 (6.3-8.2) g/dL Albumin 4.2 (3.5-5.0) g/dL Urine Color Urine Appearance (Clear) Urine pH (5.0-8.0) Ur Specific [place] (1.001-1.035) Urine Protein (Negative) Urine Glucose (UA) (Negative) Urine Ketones (Negative) Urine Blood (Negative) Urine Nitrite (Negative) Urine Bilirubin (Negative) Urine Urobilinogen (<2.0) mg/dL Ur Leukocyte Esterase (Negative) Urine RBC (0-5) /hpf Urine WBC (0-5) /hpf Ur Squamous Epith Cells (0-4) /hpf Urine Bacteria (None) /hpf Urine Mucus (None) /hpf 05/06/23 05/06/23 Range/Units 14:42 14:42 WBC (3.8-10.6) k/uL RBC (3.80-5.40) m/uL Hgb (11.4-16.0) gm/dL Hct (34.0-46.0) % MCV (80.0-100.0) fL MCH (25.0-35.0) pg MCHC (31.0-37.0) g/dL RDW (11.5-15.5) % Plt Count (150-450) k/uL MPV Neutrophils % % Lymphocytes % % Monocytes % % Eosinophils % % Basophils % % Neutrophils # (1.3-7.7) k/uL Lymphocytes # (1.0-4.8) k/uL Monocytes # (0-1.0) k/uL Eosinophils # (0-0.7) k/uL Basophils # (0-0.2) k/uL PT (10.0-12.5) sec INR (<1.2) APTT (22.0-30.0) sec Sodium (137-145) mmol/L Potassium (3.5-5.1) mmol/L Chloride (98-107) mmol/L Carbon Dioxide (22-30) mmol/L Anion Gap mmol/L BUN (7-17) mg/dL Creatinine (0.52-1.04) mg/dL Est GFR (CKD-EPI)AfAm (>60 ml/min/1.73 sqM) Est GFR (CKD-EPI)NonAf (>60 ml/min/1.73 sqM) Glucose (74-99) mg/dL Calcium (8.4-10.2) mg/dL Magnesium (1.6-2.3) mg/dL Total Bilirubin (0.2-1.3) mg/dL AST (14-36) U/L ALT (4-34) U/L Alkaline Phosphatase (38-126) U/L Troponin I <0.012 (0.000-0.034) ng/mL Total Protein (6.3-8.2) g/dL Albumin (3.5-5.0) g/dL Urine Color Light Yellow Urine Appearance Cloudy H (Clear) Urine pH 6.0 (5.0-8.0) Ur Specific [place] 1.020 (1.001-1.035) Urine Protein Negative (Negative) Urine Glucose (UA) Negative (Negative) Urine Ketones Negative (Negative) Urine Blood Small H (Negative) Urine Nitrite Negative (Negative) Urine Bilirubin Negative (Negative) Urine Urobilinogen <2.0 (<2.0) mg/dL Ur Leukocyte Esterase Large H (Negative) Urine RBC 2 (0-5) /hpf Urine WBC 13 H (0-5) /hpf Ur Squamous Epith Cells 8 H (0-4) /hpf Urine Bacteria Rare H (None) /hpf Urine Mucus Rare H (None) /hpf Disposition <Dagoberto Roberson - Last Filed: 05/06/23 14:25> Is patient prescribed a controlled substance at d/c from ED?: No Time of Disposition: 16:51 <Mary Islas - Last Filed: 05/07/23 02:19> Clinical Impression: Palpitations Disposition: HOME SELF-CARE Condition: Stable Instructions (If sedation given, give patient instructions): Heart Palpitations (ED) Additional Instructions: I recommend an echo and Holter monitoring. Follow up with your primary care doctor to have these done. Return for any new or worsening symptoms Referrals: Nawaf Dowling MD [Primary Care Provider] - 1-2 days
[2023-05-06 15:08] LABS: Basophils % (A) 1 %; Eosinophils # (A) 0.4 k/uL (0-0.7); Eosinophils % (A) 7 %; HCT 38.6 % (34.0-46.0); HGB 13.4 gm/dL (11.4-16.0); Lymphocytes # (A) 1.2 k/uL (1.0-4.8); Lymphocytes % (A) 17 %; MCH 31.6 pg (25.0-35.0); MCHC 34.6 g/dL (31.0-37.0); MCV 91.1 fL (80.0-100.0); Mean Platelet Volume 10.4; Monocytes # (A) 0.3 k/uL (0-1.0); Monocytes % (A) 4 %; Neutrophils # (A) 4.7 k/uL (1.3-7.7); Neutrophils % (A) 69 %; Platelet Count 163 k/uL (150-450); RBC 4.23 m/uL (3.80-5.40); RDW 12.5 % (11.5-15.5); WBC 6.8 k/uL (3.8-10.6)
[2023-05-06 15:13] LABS: Appearance,Urine Cloudy (Clear); Bacteria,Urine Rare /hpf; Bilirubin,Urine Negative (Negative); Blood,Urine Small (Negative); Color,Urine Light Yellow; Glucose,Urine (UA) Negative (Negative); Ketones,Urine Negative (Negative); Leukocyte Esterase,Urine Large (Negative); Mucus,Urine Rare /hpf; Nitrite,Urine Negative (Negative); Protein,Urine Negative (Negative); RBC,Urine 2 /hpf (0-5); Squamous Epithelial Cell,Urine 8 /hpf (0-4); Urobilinogen,Urine <2.0 mg/dL (<2.0); WBC,Urine 13 /hpf (0-5)
--- NOTE | 2023-05-06 15:14 | XR ---
EXAMINATION TYPE: XR chest 2V DATE OF EXAM: 05/06/2023 COMPARISON: 01/18/2021 HISTORY: 37-year-old female with dysrhythmia, chest pain TECHNIQUE: PA and lateral views FINDINGS: The cardiomediastinal silhouette, aorta, and pulmonary vasculature are within normal limits. Lungs an d pleural spaces are clear. IMPRESSION: No acute cardiopulmonary process.
[2023-05-06 15:18] LABS: ALT 75 U/L (4-34); AST 89 U/L (14-36); African American GFR (CKD) >90 (>60 ml/min/1.73 sqM); Albumin 4.2 g/dL (3.5-5.0); Alkaline Phosphatase 84 U/L (38-126); Anion Gap 9 mmol/L; Blood Urea Nitrogen 15 mg/dL (7-17); Calcium 9.5 mg/dL (8.4-10.2); Carbon Dioxide 26 mmol/L (22-30); Chloride 101 mmol/L (98-107); Glucose 96 mg/dL (74-99); Magnesium 1.8 mg/dL (1.6-2.3); Non-African American GFR(CKD) >90 (>60 ml/min/1.73 sqM); Potassium 4.1 mmol/L (3.5-5.1); Sodium 136 mmol/L (137-145); Total Bilirubin 0.7 mg/dL (0.2-1.3); Total Protein 6.9 g/dL (6.3-8.2)
[2023-05-06 15:30] LABS: INR 0.9 (<1.2); Partial Thromboplastin Time 24.6 sec (22.0-30.0); Prothrombin Time 10.4 sec (10.0-12.5)
--- NOTE | 2023-05-06 16:13 | US ---
EXAMINATION TYPE: US venous doppler duplex LE LT DATE OF EXAM: 05/06/2023 4:00 PM COMPARISON: NONE CLINICAL INDICATION: Female, 37 years old with history of r/o DVT; No hx of DVT. Patient does not tyler e blood thinners. Pain in left leg x a couple months, worse x 1 week. SIDE PERFORMED: Left TECHNIQUE: The lower extremity deep venous system is examined utilizing real time linear array sonog june with graded compression, doppler sonography and color-flow sonography. VESSELS IMAGED: Common Femoral Vein Deep Femoral Vein Greater Saphenous Vein * Femoral Vein Popliteal Vein Small Saphenous Vein * Proximal Calf Veins Posterior tibial/peroneal veins (* superficial vessels) Left Leg: No evidence of DVT. IMPRESSION: No evidence for DVT within the left lower extremity.
[2023-05-06 17:50] VITALS: PULSE 84
== END 2023-05-06 17:36 | disposition home or self-care (01) ==
LOC: EC 13:49
DX: R00.2 Palpitations (principal); F32.A Depression, unspecified; F41.9 Anxiety disorder, unspecified; F12.90 Cannabis use, unspecified, uncomplicated; Z79.899 Other long term (current) drug therapy
CPT/HCPCS: 36415; 71046; 80053; 81001; 83735; 84484; 85025; 85610; 85730; 93005; 99285

== ENCOUNTER → 2023-07-27 | Outpatient (CLI) | payer OTHER ==
--- NOTE | 2023-07-27 16:34 | US ---
EXAMINATION TYPE: US pelvis complete transvag DATE OF EXAM: 07/27/2023 COMPARISON: NONE CLINICAL INDICATION: Female, 37 years old with history of N83.0 FOLLICULAR CYST OF OVARY, UNSPECIFIED N94.6; pelvic pain during cycles, TECHNIQUE: TA/TV. Transabdominal sonographic images of the pelvis were acquired. Transvaginal sono graphic images Date of LMP: 07/17/2023 EXAM MEASUREMENTS: Uterus: 9.9 x 5.4 x 4.4 cm Endometrial Stripe: 1.1 cm Right Ovary: 3.4 x 2.8 x 2.5 cm Left Ovary: 6.4 x 6.3 x 4.4 cm 1. Uterus: Anteverted nabothian cysts 2. Endometrium: wnl 3. Right Ovary: wnl 4. Left Ovary: multiple cyst, some simple some with internal debris, largest measured = 2.9 x 2.9 x 2.6cm with appearance of endometrioma versus other etiology 5. Bilateral Adnexa: wnl 6. Posterior cul-de-sac: wnl IMPRESSION: 1. No evidence for acute process. 2. Endometrium within normal limits for thickness. 3. Left ovarian dominant follicle measuring up to 2.9 cm.
== END | disposition home or self-care (01) ==
LOC: RADUSWWP 15:17
PROVIDERS: ATTEND Obstetrics & Gynecology
DX: N83.02 Follicular cyst of left ovary (principal); R93.89 Abnormal findings on diagnostic imaging of other specified body structures; N94.6 Dysmenorrhea, unspecified
CPT/HCPCS: 76830; 76856

== ENCOUNTER → 2024-07-16 | Outpatient (CLI) | payer OTHER ==
--- NOTE | 2024-07-16 11:00 | USB ---
Reason for Exam: Clinical finding. Risk Values: Ninfa 5 year model risk: 0.3%. NCI Lifetime model risk: 6.8%. Technique: Method: Whole Breast Handheld. Findings: The whole breast of the right breast, the axilla of the right breast and the retroareolar of the right breast were scanned. No solid or cystic masses are identified. Given history of palpable mass bilateral mammography is advised. Overall Assessment: Incomplete: need additional imaging evaluation, BI-RAD 0 Management: Diagnostic Mammogram of both breasts. A clinical breast exam by your physician is recommended on an annual basis and results should be correlated with mammographic findings. This exam should not preclude additional follow-up of suspicious palpable abnormalities. Results were given to the patient verbally at the time of exam. [facility], , 07/16/2024 10:54 AM. Electronically signed and approved by: Tavares Ball M.D. Radiologis
== END | disposition home or self-care (01) ==
LOC: RADUSWWP 10:18
PROVIDERS: ATTEND Family Medicine
DX: N63.20 Unspecified lump in the left breast, unspecified quadrant (principal)

== ENCOUNTER → 2024-07-20 | Outpatient (CLI) | payer OTHER ==
--- NOTE | 2024-07-20 09:29 | MM ---
Reason for Exam: Clinical finding. Baseline mammogram. Indicated Problems: Pain of both sides. Patient History: Menarche at age 11. First Full-Term at age 16. Last menstrual period: 07/16/2024 Risk Values: Ninfa 5 year model risk: 0.4%. NCI Lifetime model risk: 8.1%. Prior Study Comparison: Patient's first Mammogram. No prior studies available for comparison. Tissue Density: The breasts are heterogeneously dense, which may obscure small masses. Findings: Analyzed By CAD. No evidence for mass or distortion. No suspicious cluster of microcalcifications. Overall Assessment: Negative, BI-RAD 1 Management: Screening Mammogram of both breasts at age 40. . Results were given to the patient verbally at the time of exam. Patient should continue monthly self-breast exams. A clinical breast exam by your physician is recommended on an annual basis. This exam should not preclude additional follow-up of suspicious palpable abnormalities. Note on Ninfa scores and lifetime risk: 1. A Ninfa score greater than 3% is considered moderate risk. If this is the case, consider specialist referral to assess eligibility for a risk reducing agent. 2. If overall lifetime risk for the development of breast cancer is 20% or higher, the patient may qualify for future screening with alternating mammogram and breast MRI. [facility], , 07/20/2024 9:24 AM. Electronically signed and approved by: Tavares Ball M.D. Radiologis
== END | disposition home or self-care (01) ==
LOC: RADMAMWWP 08:42
PROVIDERS: ATTEND Family Medicine
DX: R92.8 Other abnormal and inconclusive findings on diagnostic imaging of breast (principal); R92.333 Mammographic heterogeneous density, bilateral breasts
CPT/HCPCS: 77062; 77066

== ENCOUNTER → 2024-08-02 | Outpatient (CLI) | payer OTHER ==
--- NOTE | 2024-08-02 10:17 | US ---
EXAMINATION TYPE: US abdomen complete DATE OF EXAM: 08/02/2024 COMPARISON: NONE CLINICAL INDICATION: Female, 38 years old with history of R10.84 Abdominal pain; abdominal pain TECHNIQUE: Grayscale and color Doppler imaging of the abdomen was performed. FINDINGS: EXAM MEASUREMENTS: Liver Length: 12.8 cm Gallbladder Wall: 0.19 cm CBD: 0.29 cm, color Doppler imaging was utilized to isolate the common bile duct for measurement. Spleen: 10.7 cm Right Kidney: 9.3 x 4.9 x 4.9 cm Left Kidney: 11.3 x 5.0 x 5.1 cm TELEVISION AUDIO ENGINEER NOTES: Pancreas: tail obscured by overlying bowel gas Liver: wnl, no dilated ducts, masses or cysts. Gallbladder: wnl Evidence for sonographic Montes's sign: No CBD: wnl Spleen: isoechoic area seen medially measuring 1.7 x 1.7 x 1.6cm, probable splenule Right Kidney: wnl, No hydronephrosis, calculi or masses seen Left Kidney: wnl, No hydronephrosis, calculi or masses seen Upper IVC: wnl Abd Aorta: limited due to bowel gas, appears wnl The visualized portion of the pancreas is unremarkable. The tail is obscured by overlying bowel gas. The liver is unremarkable without focal lesion. Gallbladder demonstrates no wall thickening, stones, or surrounding fluid. Negative sonographic Montes sign. Common bile duct is within normal limits. Spl een is unremarkable with incidental splenule. Both kidneys demonstrate no hydronephrosis, calculi or masses. The visualized upper IVC and abdominal aorta within normal limits. IMPRESSION: No ultrasound evidence for acute abdominal process. [facility], , 08/02/2024 10:14 AM
--- NOTE | 2024-08-02 10:22 | US ---
EXAMINATION TYPE: US pelvis complete transvag DATE OF EXAM: 08/02/2024 COMPARISON: 07/27/23, 01/26/2023 CLINICAL INDICATION: Female, 38 years old with history of R10.84; pain. Hx of ovarian cysts. TECHNIQUE: Transvaginal (TV) and Transabdominal (TA) . Transabdominal grayscale sonographic images of the pelvis were acquired. Transvaginal sonographic im ages were medically necessary to better assess the following anatomy: Ovaries Doppler imaging: Performed on left ovary FINDINGS: Date of LMP: 07/16/24. EXAM MEASUREMENTS: Uterus: 10.5 x 5.9 x 4.3cm Endometrial Stripe: 1.0 cm Right Ovary: 4.1 x 3.4 x 2.8 cm Left Ovary: 10.7 x 8.2 x 7.6 cm 1. Uterus: Anteverted nabothian cysts seen in cervix 2. Endometrium: wnl 3. Right Ovary: wnl 4. Left Ovary: large complex area seen measuring 7.9 x 5.7 x 6.0cm Spectral, color and waveform doppler imaging shows good arterial and venous flow within the Left ov pedro luis; there is no evidence for ovarian torsion. 5. Bilateral Adnexa: small amount of free fluid seen adjacent to left ovary 6. Posterior cul-de-sac: small amount of free fluid seen Anteverted uterus of focal lesion. Incidental nabothian cysts. Endometrium is within normal limits. R ight ovary appears unremarkable with color flow demonstrated. Large multiseptated complex left ovaria n lesion. No internal color flow. This is mixed anechoic and hypoechoic low level echoes. Retrospecti vely similar from prior exam. No evidence for left ovarian torsion. Small amount of free fluid within the posterior cul-de-sac and left adnexa. IMPRESSION: 1. Multiseptated left ovarian lesion with anechoic and hypoechoic regions demonstrating low echo ech oes. This measures up to 7.9 cm. This is indeterminate but may represent endometriomas versus ovarian epithelial neoplasm. Further evaluation with MRI pelvis with IV contrast is recommended. 2. Small amount of free fluid in the posterior cul-de-sac and left adnexa. [facility], , 08/02/2024 10:20 AM
== END | disposition home or self-care (01) ==
LOC: RADUSWWP 08:56
PROVIDERS: ATTEND Family Medicine
DX: N83.8 Other noninflammatory disorders of ovary, fallopian tube and broad ligament (principal); N85.4 Malposition of uterus
CPT/HCPCS: 76700; 76830; 76856; 93976

== ENCOUNTER → 2024-08-07 | Outpatient (CLI) | payer OTHER ==
--- NOTE | 2024-08-08 08:30 | MR ---
EXAMINATION TYPE: MR pelvis wo/w con DATE OF EXAM: 08/07/2024 6:56 PM COMPARISON: Ultrasound 08/02/2024. CLINICAL INDICATION: Female, 38 years old with history of N83.202 UNSPECIFIED OVARIAN CYST, LEFT SIDE ; PHH, Left ovarian cyst TECHNIQUE: Triplane multisequence imaging was performed of the pelvis. IV Contrast: 6 mL Gadobutrol FINDINGS: Reproductive: Vagina: Unremarkable. Uterus: The uterus is anteverted in position. Uterus measures 9.6 x 5.3 x 6.3. Cm. The endometrium an d junctional zone are within normal limits. Multiple fibroids are present including right lateral exo phytic fibroid measuring 3.9 x 3.4 cm. Multiple nabothian cysts are seen in the lower uterine segment . Septate versus arcuate morphology to the uterine fundus. Ovaries: Follicular changes are noted to the ovaries. Bilateral intrinsic high T1 signal lesions in t he ovaries. On the left structure is tubular intrinsic high T1 signal throughout.. Additionally there is a high T2 low T1 signal cyst in left ovary measuring up to 6.0 cm. The right ovary also demonstra tim r high T2 low T1 signal cysts measuring up to 3.2 cm. Bladder: Unremarkable. Bowel: Unremarkable as visualized. Peritoneum: No free fluid or adenopathy. Lymph nodes: No evidence of adenopathy. Vasculature: Unremarkable. Musculoskeletal: Bone marrow signal is within normal signal intensity. Abdominal wall/soft tissues: Unremarkable. IMPRESSION: 1. Dilated left fallopian tube with proteinaceous/hemorrhagic contents suggesting hip hematosalpinx. Additional intrinsic high T1 possible pernicious/hemorrhagic follicles on the right. There are more simple appearing cysts bilaterally measuring up to 6.0 cm on left and 3.2 cm on the right. This predi sposes the patient to ovarian torsion. 2. Fibroid uterus. 3. Septate versus arcuate morphology to the uterine fundus. [facility], , 08/08/2024 8:28 AM
== END | disposition home or self-care (01) ==
LOC: RADMRIMAIN 17:54
PROVIDERS: ATTEND Family Medicine
DX: N83.202 Unspecified ovarian cyst, left side (principal); D25.9 Leiomyoma of uterus, unspecified; N83.512 Torsion of left ovary and ovarian pedicle; N88.8 Other specified noninflammatory disorders of cervix uteri
CPT/HCPCS: 72197; A9585

== ENCOUNTER → 2024-10-16 | Outpatient (CLI) | payer BC | END | disposition home or self-care (01) | LOC: LABWHC1 09:05 | PROVIDERS: ATTEND Obstetrics & Gynecology | DX: N83.292 Other ovarian cyst, left side (principal) | CPT/HCPCS: 36415; 86304 ==